=== PATIENT | female | born 1975 | race Two or more races ===

== ENCOUNTER 2017-06-14 01:50 | Emergency (ER) | payer OTHER ==
[2017-06-14] MEDS ORDERED: Acetaminophen TAB* 325 MG PO ONE ×2 (02:08→02:39)
[2017-06-14] MEDS ORDERED: Ibuprofen TAB* 800 MG PO ONE (02:38)
[2017-06-14] MEDS ORDERED: Oseltamivir CAP* 75 MG CAP PO ONE (03:09)
[2017-06-14 03:33] VITALS: BP 97/57
--- NOTE | 2017-06-14 06:16 | ED ---
Mayda Narayan Jason, scribed for Marietta Mcpherson MD on 06/14/17 at 0406 . Influenza-Like Illness - HPI Summary HPI Summary: This patient is a 42 year old F presenting to [facility] with a chief complaint of flu-like sx since 2 days ago. The patient rates the pain 10/10 in severity. Symptoms aggravated by nothing. Symptoms alleviated by nothing. Patient reports cough, fever, headache and myalgia. - History of Current Complaint Chief Complaint: EDFluSymptoms Time Seen by Provider: 06/14/17 02:17 Hx Obtained From: Patient Onset/Duration: Gradual Onset, Lasting Days - since 2 days ago, Still Present Associated Signs & Symptoms: Fever, Myalgia, Cough, Headache - Allergy/Home Medications Allergies/Adverse Reactions: Allergies Allergy/AdvReac Type Severity Reaction Status Date / Time No Known Allergies Allergy Verified 06/14/17 01:58 PMH/Surg Hx/FS Hx/Imm Hx Previously Healthy: Yes Opthamlomology History: Denies: Hx Legally Blind EENT History: Denies: Hx Deafness Infectious Disease History: No Infectious Disease History: Denies: Traveled Outside the [place] in Last 30 Days - Family History Known Family History: Negative: Renal Disease, Blood Disorder - Social History Lives: Alone Alcohol Use: None Substance Use Type: Reports: None Hx Tobacco Use: No Smoking Status (MU): Never Smoked Tobacco Review of Systems Positive: Fever Positive: Cough Positive: Myalgia Positive: Headache All Other Systems Reviewed And Are Negative: Yes Physical Exam - Summary Physical Exam Summary: VITAL SIGNS: Reviewed. GENERAL: ~Patient is a well-developed and nourished female who is lying comfortable in the stretcher. Patient is not in any acute respiratory distress. HEAD AND FACE: No signs of trauma. No ecchymosis, hematomas or skull depressions. No sinus tenderness. EYES: PERRLA, EOMI x 2, No injected conjunctiva, no nystagmus. EARS: Hearing grossly intact. Ear canals and tympanic membranes are within normal limits. MOUTH: Oropharynx within normal limits. NECK: Supple, trachea is midline, mild cervical adenopathy, no JVD, no carotid bruit, no c-spine tenderness, neck with full ROM. CHEST: Symmetric, no tenderness at palpation LUNGS: Clear to auscultation bilaterally. No wheezing or crackles. CVS: Regular rate and rhythm, S1 and S2 present, no murmurs or gallops appreciated. ABDOMEN: Soft, non-tender. No signs of distention. No rebound no guarding, and no masses palpated. Bowel sounds are normal. EXTREMITIES: FROM in all major joints, no edema, no cyanosis or clubbing. NEURO: Alert and oriented x 3. No acute neurological deficits. Speech is normal and follows commands. SKIN: Dry and warm Triage Information Reviewed: Yes Vital Signs On Initial Exam: Initial Vitals Temp Pulse Resp BP Pulse Ox 102.0 F 105 13 109/60 99 06/14/17 01:56 06/14/17 01:56 06/14/17 01:56 06/14/17 01:56 06/14/17 01:56 Vital Signs Reviewed: Yes Diagnostics - Vital Signs Vital Signs Temp Pulse Resp BP Pulse Ox 06/14/17 03:32 101.2 F 88 16 97/57 96 06/14/17 03:00 87 98 06/14/17 02:30 87 94/64 98 06/14/17 02:10 85 97 06/14/17 02:08 108/69 06/14/17 01:56 102.0 F 105 13 109/60 99 - Laboratory Lab Results: Lab Results 06/14/17 Range/Units 02:46 Influenza A (Rapid) Negative (Negative) Influenza B (Rapid) Positive H (Negative) Lab Statement: Any lab studies that have been ordered have been reviewed, and results considered in the medical decision making process. Flu Symptom Course/Dx - Course Course Of Treatment: This patient is a 42 year old F presenting to [facility] with a chief complaint of flu-like sx since 2 days ago. The patient rates the pain 10/ 10 in severity. Symptoms aggravated by nothing. Symptoms alleviated by nothing. Patient reports cough, fever, headache and myalgia. In the ED course the patient was given ibuprofen, acetaminophen and oseltamivir. The patient tested positive for Influenza B. Assessment/Plan: Patient will be discharged with medication and follow up from PCP if symptoms persist. Patient was advised to return for any new or worsening symptoms. The patient is agreeable with this plan. - Diagnoses Provider Diagnoses: Influenza B Discharge - Discharge Plan Condition: Stable Disposition: HOME Prescriptions: Ibuprofen TAB* [Motrin TAB* 600 MG] 600 mg PO Q6H PRN #30 tab PRN Reason: Fever/Pain Oseltamivir CAP* [Tamiflu CAP*] 75 mg PO BID #10 cap Patient Education Materials: Influenza (ED) Print Language: BELARUSIAN Forms: *Work Release Referrals: [facility] [Provider Group] No Primary Care Phys,NOPCP [Primary Care Provider] - Additional Instructions: RETURN TO EMERGENCY DEPARTMENT FOR ANY NEW OR WORSENING SYMPTOMS The documentation as recorded by the Mayda del rio Jason accurately reflects the service I personally performed and the decisions made by Ky johnson Abdul, MD.
== END 2017-06-14 03:32 | disposition home or self-care (01) ==
LOC: ED 01:50
DX: J11.1 Influenza due to unidentified influenza virus with other respiratory manifestations (principal)
CPT/HCPCS: 87502; 99283; A9270-GY

== ENCOUNTER → 2018-02-19 13:45 | Emergency (ER) | payer OTHER ==
[~2018-02-19 13:45] MED LIST: Naproxen TAB* 250 MG PO ONE
--- NOTE | 2018-02-19 17:07 | ED ---
Headache - HPI Summary HPI Summary: Patient is a 42-year-old female who presents emergency department for headache 4 days. Patient speaks Kyrgyz and her friend is present who is interpreting. Patient notes that she does not have a history of headaches or migraines. She states this is the worst headache of her life. It was not maximal intensity at onset and progressively got worse. She describes pain as a burning deep sensation. She thought that she did feel a lump to her scalp but does not feel it currently. She denies vision changes but does not irritation to left eye and itching. Denies associated symptoms of fever, chills, sinus pressure, sore throat, runny nose, chest pain, shortness of breath, abdominal pain, vomiting, diarrhea, urinary symptoms, numbness, tingling, weakness. Patient denies past medical history. She has not tried taking any [id number] analgesics for the pain. Symptoms are moderate in severity. No current modifying factors. Denies injury. - History Of Current Complaint Chief Complaint: EDHeadache Stated Complaint: HEAD INJURY Time Seen by Provider: 02/19/18 16:42 Hx Obtained From: Patient, Family/Professor Of Social Work, Pipeman - Allergies/Home Medications Allergies/Adverse Reactions: Allergies Allergy/AdvReac Type Severity Reaction Status Date / Time No Known Allergies Allergy Verified 02/19/18 13:52 PMH/Surg Hx/FS Hx/Imm Hx Previously Healthy: Yes Sensory History: Denies: Hx Legally Blind, Hx Deafness Opthamlomology History: Denies: Hx Legally Blind Infectious Disease History: No Infectious Disease History: Denies: Traveled Outside the [place] in Last 30 Days - Family History Known Family History: Negative: Renal Disease, Blood Disorder - Social History Occupation: Unemployed Lives: With Family Alcohol Use: None Substance Use Type: Reports: None Hx Tobacco Use: No Smoking Status (MU): Never Smoked Tobacco Review of Systems Constitutional: Negative Negative: Fever, Chills Positive: Other - irritation. Negative: Photophobia, Blurred Vision, Diplopia ENT: Negative Negative: Sore Throat, Ear Ache, Nasal Discharge Cardiovascular: Negative Respiratory: Negative Gastrointestinal: Negative Negative: Vomiting, Nausea Genitourinary: Negative Musculoskeletal: Negative Skin: Negative Positive: Headache All Other Systems Reviewed And Are Negative: Yes Physical Exam Triage Information Reviewed: Yes Vital Signs On Initial Exam: Initial Vitals Temp Pulse Resp BP Pulse Ox 98.1 F 74 16 126/83 100 02/19/18 13:53 02/19/18 13:53 02/19/18 13:53 02/19/18 13:53 02/19/18 13:53 Vital Signs Reviewed: Yes Appearance: Positive: Well-Appearing - Pt. sitting on bed in NAD. Friend present. Skin: Positive: Warm, Dry, Other - No rash to scalp. Head/Face: Positive: Normal Head/Face Inspection Eyes: Positive: Normal, EOMI, LEE, Conjunctiva Clear ENT: Positive: Pharynx normal, TMs normal Neck: Positive: Supple, Nontender. Negative: Nuchal Rigidity Respiratory/Lung Sounds: Positive: Clear to Auscultation, Breath Sounds Present Cardiovascular: Positive: Normal, RRR Neurological: Positive: Normal, Alert, Oriented to Person Place, Time, CN Intact II-III, Facial Symmetry, Speech Normal. Negative: Receptive Aphasia, Expressive Aphasia, Disoriented Psychiatric: Positive: Affect/Mood Appropriate - [place] Coma Scale Best Eye Response: 4 - Spontaneous Best Motor Response: 6 - Obeys Commands Best Verbal Response: 5 - Oriented Coma Scale Total: 15 Diagnostics - Vital Signs Vital Signs Temp Pulse Resp BP Pulse Ox 02/19/18 15:52 69 16 110/71 99 02/19/18 13:53 98.1 F 74 16 126/83 100 - Laboratory Lab Statement: Any lab studies that have been ordered have been reviewed, and results considered in the medical decision making process. Headache Course/Dx - Course Course Of Treatment: Pt. presenting with new onset headache 4 days. She has no neuro deficits on exam. She complains of pain to her left parietal region. she does describe it has a burning sensation at times but states feels deep as well as on the skin. She is concern bc she has never had a h/a like this before. Given new onset h/a will obtain labs an ct to r/o intracranial mass/ bleed. Suspect that pt. may have a prodrome for shingles given burning sensation. Pt. will be signed out to Dhruv Edmonds PA-C for testing results and disposition. - Diagnoses Differential Diagnosis/HQI/PQRI: Epidural Hematoma, Meningitis, Migraine, Sinus Headache, Tension Headache, Viral Syndrome Provider Diagnoses: Cephalgia Discharge - Sign-Out/Discharge Documenting (check all that apply): Sign-Out Patient Signing out patient TO: Dhruv Edmonds - Discharge Plan Condition: Good Referrals: No Primary Care Phys,NOPCP [Primary Care Provider] - - Billing Disposition and Condition Condition: GOOD
[2018-02-19 17:45] LABS: ABS Basophils 0 10^3/ul (0-0.2); ABS Eosinophils 0.5 10^3/ul (0-0.6); ABS Lymphocytes 2.6 10^3/ul (1.0-4.8); ABS Monocytes 0.7 10^3/ul (0-0.8); ABS Neutrophils 3.7 10^3/ul (1.5-7.7); ABS Nucleated RBC 0 10^3/ul; Eosinophil % 6.8 % (0-6); Hematocrit 41 % (35-47); Lymphocyte % 34.5 % (25-47); Mean Corpuscular HGB Conc 34 g/dl (31-36); Mean Corpuscular Hemoglobin 32 pg (27-31); Mean Corpuscular Volume 93 fL (80-97); Mean Platelet Volume 7.7 um3 (7.4-10.4); Nucleated Red Blood Cells % 0.1; Platelet Count 238 10^3/ul (150-450); Red Blood Count 4.43 10^6/ul (4.00-5.40); Red Cell Distribution Width 13 % (10.5-15); White Blood Count 7.5 10^3/ul (3.5-10.8)
--- NOTE | 2018-02-19 17:52 | RAD ---
Indication: Headache. CT of the brain performed without IV contrast. Ventricular structures are midline. No midline shift is noted. The extra-axial spaces are unremarkable. There is no evidence of intracranial mass or hemorrhage. Mastoid air cells and paranasal sinuses are otherwise unremarkable. IMPRESSION: No intracranial mass or hemorrhage is noted.
[2018-02-19 18:02] LABS: EGFR Non-African American 110.2 (>60)
[2018-02-19 18:52] VITALS: BP 124/69
== END | disposition home or self-care (01) ==
LOC: ED 13:45
DX: R51 Headache (principal)
CPT/HCPCS: 36415; 70450; 80053; 83735; 85025; 99282; A9270-GY

== ENCOUNTER 2021-04-18 16:50 | Observation (INO) ==
[2021-04-18] MEDS ORDERED: NS 0.9% 1000 ml BAG 1,000 ML IV ONE (20:54)
[2021-04-18 21:07] LABS: ABS Eosinophils 0.2 10^3/ul (0-0.6); ABS Lymphocytes 1.6 10^3/ul (1.0-4.8); ABS Monocytes 0.6 10^3/ul (0-0.8); ABS Neutrophils 3.4 10^3/ul (1.5-7.7); Eosinophil % 4.1 %; Hematocrit 40 % (35-47); Hemoglobin 13.7 g/dL (12.0-16.0); Lymphocyte % 26.5 %; Mean Corpuscular HGB Conc 34 g/dL (31-36); Mean Corpuscular Hemoglobin 31 pg (27-31); Mean Corpuscular Volume 92 fL (80-97); Platelet Count 230 10^3/uL (150-450); Red Cell Distribution Width 13 % (10-15); White Blood Count 5.9 10^3/uL (3.5-10.8)
[2021-04-18 21:26] LABS: AST 315 U/L (13-39); Albumin 4.5 g/dL (3.2-5.2); Albumin/Globulin Ratio 1.4 (1-3); Alkaline Phosphatase 142 U/L (35-149); Anion Gap 4 mmol/L (2-11); Blood Urea Nitrogen 14 mg/dL (6-24); C Reactive Protein 5.33 mg/L (<8.01); CO2 Carbon Dioxide 29 mmol/L (22-32); Calcium 9.5 mg/dL (8.6-10.3); Chloride 102 mmol/L (101-111); Globulin 3.3 g/dL (2-4); Glucose 114 mg/dL (70-100); Lipase 30 U/L (11.0-82.0); Potassium 3.6 mmol/L (3.5-5.0); Sodium 135 mmol/L (135-145); Total Protein 7.8 g/dL (6.4-8.9); eGFR CKD-EPI 83.7 (>60)
[2021-04-18 21:41] LABS: ALT 803 U/L (7-52)
[2021-04-18 22:45] LABS: Urine Appearance Cloudy; Urine Bilirubin Negative (Negative); Urine Blood Negative (Negative); Urine Color Amber; Urine Glucose Negative (Negative); Urine Ketones Negative (Negative); Urine Nitrite Negative (Negative); Urine Protein Negative (Negative); Urine Specific Gravity 1.013 (1.002-1.030); Urine Urobilinogen Positive (Negative)
[2021-04-18] MEDS ORDERED: Ondansetron 4 mg VIAL 2 MG/ML 2 ml VIAL IV ONE (22:45)
[2021-04-18] MEDS ORDERED: Morphine 4 MG/ML VIAL (1 ml) IV ONE (22:45)
[2021-04-18 22:50] LABS: Acetaminophen < 15 mcg/mL
[2021-04-19] MEDS ORDERED: Ondansetron 4 mg VIAL 2 MG/ML 2 ml VIAL IV PRN (00:15)
[2021-04-19] MEDS ORDERED: Lactated Ringers 1000 ml BAG 1,000 ML IV SCH (01:00)
[2021-04-19 03:42] LABS: Hepatitis A Ab IgM Negative (Negative); Hepatitis B Core IgM Nonreactive (Nonreactive); Hepatitis B Surface Antigen Nonreactive (Nonreactive); Hepatitis C Antibody Negative (Negative)
[2021-04-19 08:41] LABS: ABS Eosinophils 0.3 10^3/ul (0-0.6); ABS Lymphocytes 1.6 10^3/ul (1.0-4.8); ABS Monocytes 0.5 10^3/ul (0-0.8); ABS Neutrophils 2.5 10^3/ul (1.5-7.7); Eosinophil % 6.4 %; Hematocrit 38 % (35-47); Hemoglobin 12.7 g/dL (12.0-16.0); Lymphocyte % 32.7 %; Mean Corpuscular HGB Conc 34 g/dL (31-36); Mean Corpuscular Hemoglobin 31 pg (27-31); Mean Corpuscular Volume 93 fL (80-97); Mean Platelet Volume 7.9 fL (7.4-10.4); Nucleated Red Blood Cells % 0.1; Platelet Count 200 10^3/uL (150-450); Red Blood Count 4.05 10^6 /uL (3.70-4.87); Red Cell Distribution Width 13 % (10-15); White Blood Count 4.9 10^3/uL (3.5-10.8)
[2021-04-19 08:49] LABS: Activated Partial Thrombo Time 32.3 seconds (26.0-38.0); INR 1.03 (0.86-1.15)
[2021-04-19 08:58] LABS: Albumin 3.9 g/dL (3.2-5.2); Albumin/Globulin Ratio 1.3 (1-3); Calcium 8.5 mg/dL (8.6-10.3); Direct Bilirubin 0.8 mg/dL (0.03-0.18); Globulin 2.9 g/dL (2-4); Potassium 3.8 mmol/L (3.5-5.0); Total Bilirubin 1.5 mg/dL (0.2-1.0); Total Protein 6.8 g/dL (6.4-8.9); eGFR CKD-EPI 113.7 (>60)
[2021-04-19] MEDS: KCL 10 MEQ/50 ML IVPREMIX 10 MEQ/50 ML BAG IV SCH ×2 (11:29→13:05)
[2021-04-19] MEDS ORDERED: Piperacillin/Tazobac ADVAN 3.375 GM in NS 0.9% 100 ml BAG 100 ML IV ONE (17:33)
[2021-04-19] MEDS ORDERED: Zosyn per Pharmacy NOTE FOLLOW UP SCH (18:00)
[2021-04-19] MEDS: HYDROmorphone 1 MG/1 ML SYRINGE IV SLOW PU PRN (19:39)
[2021-04-19] MEDS: ZOSYN 3.375 GM Q8H per EXTENDED INFUSION IV SCH (23:09)
[2021-04-20 06:39] LABS: ABS Eosinophils 0.2 10^3/ul (0-0.6); ABS Lymphocytes 1.3 10^3/ul (1.0-4.8); ABS Monocytes 0.5 10^3/ul (0-0.8); ABS Neutrophils 3.4 10^3/ul (1.5-7.7); Eosinophil % 3.2 %; Hematocrit 39 % (35-47); Hemoglobin 13.3 g/dL (12.0-16.0); Lymphocyte % 24.7 %; Mean Corpuscular HGB Conc 34 g/dL (31-36); Mean Corpuscular Hemoglobin 32 pg (27-31); Mean Corpuscular Volume 92 fL (80-97); Mean Platelet Volume 8.4 fL (7.4-10.4); Platelet Count 216 10^3/uL (150-450); Red Blood Count 4.24 10^6 /uL (3.70-4.87); Red Cell Distribution Width 13 % (10-15); White Blood Count 5.4 10^3/uL (3.5-10.8)
[2021-04-20 07:07] LABS: Potassium 3.7 mmol/L (3.5-5.0)
[2021-04-20 07:08] LABS: Albumin/Globulin Ratio 1.3 (1-3); Calcium 9.1 mg/dL (8.6-10.3); Direct Bilirubin 2.6 mg/dL (0.03-0.18); Globulin 3.2 g/dL (2-4); Indirect Bilirubin 1.3 mg/dL (0.3-1.0); Magnesium 1.8 mg/dL (1.9-2.7); Total Bilirubin 3.9 mg/dL (0.2-1.0); Total Protein 7.2 g/dL (6.4-8.9); eGFR CKD-EPI 113.2 (>60)
[2021-04-20] MEDS: ZOSYN 3.375 GM Q8H per EXTENDED INFUSION IV SCH ×3 (08:01→23:39)
[2021-04-20] MEDS ORDERED: Magnesium Sulfate 2 gm BAG 2 GM/50 ML BAG IVPB ONE (08:21)
[2021-04-20] MEDS ORDERED: Flu vaccine *QUAD* 2021-22* 0.5 ML SYRINGE IM ONE (09:00)
[2021-04-20] MEDS ORDERED: Ketamine HCL 50 mg/ml 10 ml VIAL (500 MG) ONE (09:07)
[2021-04-20] MEDS ORDERED: fentaNYL 250 mcg/5 ml 50 MCG/ML 5 ml VIAL (250 MCG) ONE (09:07)
[2021-04-20] MEDS ORDERED: Dexamethasone IV 4 MG/ML VIAL 1 ml VIAL ONE (09:07)
[2021-04-20] MEDS ORDERED: Lidocaine 2% PF 5 ML VIAL ONE (09:07)
[2021-04-20] MEDS ORDERED: Propofol 10 MG/ML 20 ML BTL ONE (09:07)
[2021-04-20] MEDS ORDERED: Midazolam 5 mg/5 ml VIAL 1 mg/ml 5 ml VIAL (5 mg) ONE (09:07)
[2021-04-20] MEDS ORDERED: Ondansetron 4 mg VIAL 2 MG/ML 2 ml VIAL ONE (09:07)
[2021-04-20] MEDS ORDERED: Rocuronium 50 mg VIAL 10 mg/ml 5 ml VIAL (50 mg) ONE (09:08)
[2021-04-20] MEDS ORDERED: Phenylephrine 40 mcg/mL 10mL (400mcg) SYRINGE ONE (09:59)
[2021-04-20] MEDS ORDERED: Ondansetron 4 mg VIAL 2 MG/ML 2 ml VIAL IV PRN (10:37)
[2021-04-20] MEDS ORDERED: Naloxone 0.4 mg VIAL 0.4 mg/ml 1 ml VIAL IV PRN (10:37)
[2021-04-20] MEDS ORDERED: HYDROmorphone 1 MG/1 ML SYRINGE IV PRN (10:37)
[2021-04-20] MEDS ORDERED: Sugammadex 500 MG/5 ML 5 ml VIAL IV PUSH ONE (11:01)
[2021-04-20] MEDS ORDERED: fentaNYL 100 mcg/2 ml 50 MCG/ML VIAL ONE (12:06)
[2021-04-20] MEDS: fentaNYL 100 mcg/2 ml 50 MCG/ML VIAL IV PRN ×2 (12:07→12:20)
[2021-04-20] MEDS: HYDROmorphone 1 MG/1 ML SYRINGE IV SLOW PU PRN ×2 (13:47→19:38)
[2021-04-21] MEDS: HYDROmorphone 1 MG/1 ML SYRINGE IV SLOW PU PRN ×4 (00:33→14:28)
[2021-04-21] MEDS ORDERED: Senna TAB 8.6 mg TAB PO PRN (00:48)
[2021-04-21] MEDS ORDERED: Magnesium Hydroxide LIQ 30 ML UDC PO PRN (00:48)
[2021-04-21] MEDS ORDERED: Polyethylene Glycol 3350 17 GM PACKET PO PRN (00:48)
[2021-04-21 06:06] LABS: ABS Monocytes 0.8 10^3/ul (0-0.8); ABS Neutrophils 6.4 10^3/ul (1.5-7.7); Eosinophil % 0.3 %; Hematocrit 36 % (35-47); Hemoglobin 12.4 g/dL (12.0-16.0); Lymphocyte % 21.8 %; Mean Corpuscular HGB Conc 34 g/dL (31-36); Mean Corpuscular Hemoglobin 31 pg (27-31); Mean Corpuscular Volume 92 fL (80-97); Mean Platelet Volume 8.7 fL (7.4-10.4); Platelet Count 207 10^3/uL (150-450); Red Blood Count 3.94 10^6 /uL (3.70-4.87); Red Cell Distribution Width 13 % (10-15); White Blood Count 9.3 10^3/uL (3.5-10.8)
[2021-04-21 06:25] LABS: Albumin 3.6 g/dL (3.2-5.2); Albumin/Globulin Ratio 1.3 (1-3); Calcium 8.6 mg/dL (8.6-10.3); Direct Bilirubin 0.4 mg/dL (0.03-0.18); Globulin 2.8 g/dL (2-4); Indirect Bilirubin 0.7 mg/dL (0.3-1.0); Potassium 3.9 mmol/L (3.5-5.0); Total Bilirubin 1.1 mg/dL (0.2-1.0); Total Protein 6.4 g/dL (6.4-8.9); eGFR CKD-EPI 112.3 (>60)
[2021-04-21] MEDS: ZOSYN 3.375 GM Q8H per EXTENDED INFUSION IV SCH (08:44)
[2021-04-21] MEDS ORDERED: Magnesium Hydroxide LIQ 30 ML UDC PO SCH (09:00)
[2021-04-21 11:36] VITALS: BP 116/67
== END 2021-04-21 14:30 | disposition home or self-care (01) ==
LOC: ED 16:50 → EDHOLD 16:50 → SUATTDRO 04-19 00:15 → MEDTELE 04-19 08:07
PROVIDERS: ADMIT Internal Medicine; ATTEND Internal Medicine